=== PATIENT | female | born 1960 | race Two or more races ===

== ENCOUNTER 2018-07-01 13:26 | Emergency (ER) | payer SELFPAY ==
[2018-07-01 14:20] VITALS: BP 122/60; PULSE 68; TEMP 97.9; BMI 27.6
--- NOTE | 2018-07-01 14:20 | PDOC ---
Rapid Medical Evaluation Time Seen by Provider: 07/01/18 14:14 Medical Evaluation: 07/01/18 14:15 I have performed a brief in-person evaluation of this patient. The patient presents with a chief complaint of: BRIGGS, room spinning dizziness and nausea x2 days Pertinent physical exam findings: EOMI. CNII-XII grossly intact. Gait steady. OP -WNL. I have ordered the following: labs, urine The patient will proceed to the ED for further evaluation. Discharge Disposition - Diagnosis Dizziness - Referrals - Patient Instructions - Post Discharge Activity
[2018-07-01 14:46] LABS: BASO % 0.3 % (0-2.0); HEMATOCRIT 35.9 % (32.4-45.2); HEMOGLOBIN 12.6 GM/dL (10.7-15.3); LYMPH % 23.2 % (8-40); MCH 31.5 pg (25.7-33.7); MCHC 35.2 g/dl (32.0-36.0); MEAN CELL VOLUME 89.5 fl (80-96); MEAN PLT VOLUME 8.8 fl (7.5-11.1); MONO % 6.2 % (3.8-10.2); NEUT % 69.3 % (42.8-82.8); PLATELET COUNT 299 K/MM3 (134-434); RBC 4.01 M/mm3 (3.60-5.2); RDW 13.1 % (11.6-15.6)
[2018-07-01 15:06] LABS: URINE APPEARANCE CLEAR; URINE BILIRUBIN NEGATIVE (<2.0 mg/dL); URINE COLOR COLORLESS; URINE GLUCOSE (UA) NEGATIVE (NEGATIVE); URINE KETONE NEGATIVE (NEGATIVE); URINE LEUK ESTERASE NEGATIVE (NEGATIVE); URINE NITRITE NEGATIVE (NEGATIVE); URINE PROTEIN NEGATIVE (NEGATIVE); URINE UROBILINOGEN NEGATIVE mg/dL (0.2-1.0)
[2018-07-01 15:18] LABS: ALBUMIN 3.7 g/dl (3.4-5.0); ALK PHOS 116 U/L (45-117); ANION GAP 4 MMOL/L (8-16); BILIRUBIN,TOTAL 0.2 mg/dL (0.2-1); BLOOD UREA NITROGEN 14 mg/dL (7-18); CALCIUM 8.9 mg/dL (8.5-10.1); CHLORIDE 105 mmol/L (98-107); CO2 30 mmol/L (21-32); CREATININE 0.5 mg/dL (0.55-1.3); GLUCOSE,RANDOM 161 mg/dL (74-106); SGOT/AST 19 U/L (15-37); SGPT/ALT 38 U/L (13-61); SODIUM 138 mmol/L (136-145); TOT PROT 7.6 g/dl (6.4-8.2)
[2018-07-01] MEDS ORDERED: IBUPROFEN 400 MG TABLET (FP) PO ONE ×2 (15:28→15:55)
--- NOTE | 2018-07-01 15:28 | PDOC ---
History of Present Illness - General Chief Complaint: Cold Symptoms Stated Complaint: HEADACHE Time Seen by Provider: 07/01/18 14:14 Past History - Past Medical History Allergies/Adverse Reactions: Allergies Allergy/AdvReac Type Severity Reaction Status Date / Time No Known Allergies Allergy Verified 07/01/18 14:17 - Suicide/Smoking/Psychosocial Hx Smoking History: Never smoked Hx Alcohol Use: No Drug/Substance Use Hx: No *Physical Exam - Vital Signs Last Vital Signs Temp Pulse Resp BP Pulse Ox 97.9 F 68 18 122/60 99 07/01/18 14:17 07/01/18 14:17 07/01/18 14:17 07/01/18 14:17 07/01/18 14:17 Moderate Sedation - Procedure Monitoring Vital Signs: Procedure Monitoring Vital Signs Temperature 97.9 F 07/01/18 14:17 Pulse Rate 68 07/01/18 14:17 Respiratory Rate 18 07/01/18 14:17 Blood Pressure 122/60 07/01/18 14:17 O2 Sat by Pulse Oximetry (%) 99 07/01/18 14:17 ED Treatment Course - LABORATORY CBC & Chemistry Diagram: 07/01/18 14:34 07/01/18 14:35 - ADDITIONAL ORDERS Additional order review: Laboratory Results 07/01/18 07/01/18 14:43 14:35 Sodium 138 Potassium 4.0 Chloride 105 Carbon Dioxide 30 Anion Gap 4 L BUN 14 Creatinine 0.5 L Creat Clearance w eGFR > 60 Random Glucose 161 H Calcium 8.9 Total Bilirubin 0.2 AST 19 ALT 38 Alkaline Phosphatase 116 Creatine Kinase 85 Troponin I < 0.02 Total Protein 7.6 Albumin 3.7 Urine Color Colorless Urine Appearance Clear Urine pH 6.0 Ur Specific [place] 1.003 L Urine Protein Negative Urine Glucose (UA) Negative Urine Ketones Negative Urine Blood Negative Urine Nitrite Negative Urine Bilirubin Negative Urine Urobilinogen Negative Ur Leukocyte Esterase Negative 07/01/18 14:34 RBC 4.01 MCV 89.5 MCHC 35.2 RDW 13.1 MPV 8.8 Neutrophils % 69.3 Lymphocytes % 23.2 Monocytes % 6.2 Eosinophils % 1.0 Basophils % 0.3 Medical Decision Making - Medical Decision Making 07/01/18 15:26 58 yo F, denies any pmhx, p/w BRIGGS/ since saturday intemrittent dizizness, nv x 1, and any body aches, feverdizzines wors e. [place]ing at [place]. top constant /10, nausea, vomitin x 2w BRIGGS, fatigue 07/01/18 14:15 I have performed a brief in-person evaluation of this patient. The patient presents with a chief complaint of: BRIGGS, room spinning dizziness and nausea x2 days Pertinent physical exam findings: EOMI. CNII-XII grossly intact. Gait steady. OP -WNL. I have ordered the following: labs, urine The patient will proceed to the ED for further evaluation. Discharge Disposition *DC/Admit/Observation/Transfer Diagnosis at time of Disposition: Dizziness - Referrals - Patient Instructions - Post Discharge Activity
--- NOTE | 2018-07-01 15:34 | PDOC ---
History of Present Illness - General Chief Complaint: Cold Symptoms Stated Complaint: HEADACHE Time Seen by Provider: 07/01/18 14:14 History Source: Patient Past History - Past Medical History Allergies/Adverse Reactions: Allergies Allergy/AdvReac Type Severity Reaction Status Date / Time No Known Allergies Allergy Verified 07/01/18 14:17 - Suicide/Smoking/Psychosocial Hx Smoking History: Never smoked Hx Alcohol Use: No Drug/Substance Use Hx: No Review of Systems - Review of Systems Constitutional: No: Chills, Fever HEENTM: No: Blurred Vision ABD/GI: Yes: Nausea, Vomiting Neurological: Yes: Headache, Dizziness. No: Numbness, Tingling, Weakness *Physical Exam - Vital Signs Last Vital Signs Temp Pulse Resp BP Pulse Ox 97.9 F 68 18 122/60 99 07/01/18 14:17 07/01/18 14:17 07/01/18 14:17 07/01/18 14:17 07/01/18 14:17 - Physical Exam General Appearance: Yes: Appropriately Dressed. No: Apparent Distress HEENT: positive: Normal Voice Neck: positive: Supple Respiratory/Chest: positive: Lungs Clear, Normal Breath Sounds. negative: Respiratory Distress Cardiovascular: positive: Regular Rate, S1, S2 Extremity: positive: Normal Inspection Integumentary: positive: Dry, Warm Neurologic: positive: Fully Oriented, Alert, Normal Mood/Affect, Motor Strength 5/5, Finger to Nose, Other ([place] intact, no ataxia, no drift). negative: Facial Droop Moderate Sedation - Procedure Monitoring Vital Signs: Procedure Monitoring Vital Signs Temperature 97.9 F 07/01/18 14:17 Pulse Rate 68 07/01/18 14:17 Respiratory Rate 18 07/01/18 14:17 Blood Pressure 122/60 07/01/18 14:17 O2 Sat by Pulse Oximetry (%) 99 07/01/18 14:17 ED Treatment Course - LABORATORY CBC & Chemistry Diagram: 07/01/18 14:34 07/01/18 14:35 - ADDITIONAL ORDERS Additional order review: Laboratory Results 07/01/18 07/01/18 14:43 14:35 Sodium 138 Potassium 4.0 Chloride 105 Carbon Dioxide 30 Anion Gap 4 L BUN 14 Creatinine 0.5 L Creat Clearance w eGFR > 60 Random Glucose 161 H Calcium 8.9 Total Bilirubin 0.2 AST 19 ALT 38 Alkaline Phosphatase 116 Creatine Kinase 85 Troponin I < 0.02 Total Protein 7.6 Albumin 3.7 Urine Color Colorless Urine Appearance Clear Urine pH 6.0 Ur Specific [place] 1.003 L Urine Protein Negative Urine Glucose (UA) Negative Urine Ketones Negative Urine Blood Negative Urine Nitrite Negative Urine Bilirubin Negative Urine Urobilinogen Negative Ur Leukocyte Esterase Negative 07/01/18 14:34 RBC 4.01 MCV 89.5 MCHC 35.2 RDW 13.1 MPV 8.8 Neutrophils % 69.3 Lymphocytes % 23.2 Monocytes % 6.2 Eosinophils % 1.0 Basophils % 0.3 - RADIOLOGY Radiology Studies Ordered: Category Date Time Status HEAD CT WITHOUT CONTRAST [CT] Stat CT Scan 07/01/18 15:28 Ordered Medical Decision Making - Medical Decision Making 07/01/18 15:29 89-year-old female, denies any past medical history here with constant, diffuse headache for the past 3 days, diffuse, sharp, 8/10, w/ no exacerbating or alleviating factors. Also complaining of intermittent lightheadedness and had 1 e/o n/v 3 nights ago. No vertigo, syncope, visual changes, sensory changes or focal weakness. No neck pain, photophobia, uri sxs, f/c. Denies history of headaches. No chest pain or shortness of breath See exam New onset BRIGGS No focal sxs No e/o infxn Stable and well alissa w/ unremarkable exam -pain control -labs including ESR though very low suspicion for TA -CTH 07/01/18 17:16 Labs including ESR and CT head all normal. Patient reports improvement with Motrin. Stable for discharge to follow-up with neurology for further evaluation if headache persists 07/01/18 17:17 *DC/Admit/Observation/Transfer Diagnosis at time of Disposition: Headache Qualifiers: Headache type: unspecified Headache chronicity pattern: acute headache Intractability: intractable Qualified Code(s): R51 - Headache - Discharge Dispostion Disposition: HOME Condition at time of disposition: Improved - Referrals Referrals: Denny Schmidt MD [Staff Physician] - - Patient Instructions Printed Discharge Instructions: DI for Headache Additional Instructions: The cause of your headache is unclear at this time as your CAT scan and blood work were all normal. If headache persists, please call Dr. Schmidt of neurology for an appointment for further evaluation - Post Discharge Activity
[2018-07-01 16:43] LABS: ERYTHROCYTE SEDIMENTATION RATE 26 mm/hr (0-30)
--- NOTE | 2018-07-02 11:09 | EKG ---
Test Reason : Blood Pressure : / mmHG Vent. Rate : 064 BPM Atrial Rate : 064 BPM P-R Int : 152 ms QRS Dur : 076 ms QT Int : 392 ms P-R-T Axes : 063 068 078 degrees QTc Int : 404 ms SINUS RHYTHM WITH PREMATURE ATRIAL COMPLEXES NONSPECIFIC T WAVE ABNORMALITY ABNORMAL ECG NO PREVIOUS ECGS AVAILABLE Confirmed by JOSE CRUZ KIRBY MD ([id number]) on 07/02/2018 11:09:38 AM Referred By: Confirmed By:JOSE CRUZ KIRBY MD
== END 2018-07-01 17:17 | disposition home or self-care (01) ==
LOC: JER 13:26
DX: R51 Headache (principal)
CPT/HCPCS: 36415; 70450-TC; 80053; 81003; 82550; 84484; 85025; 85651; 87086; 93005; 93010; 99282-25

== ENCOUNTER 2019-11-16 17:31 | Emergency (ER) | payer SELFPAY ==
--- NOTE | 2019-11-16 17:38 | PDOC ---
Rapid Medical Evaluation Time Seen by Provider: 11/16/19 17:34 Medical Evaluation: Allergies Allergy/AdvReac Type Severity Reaction Status Date / Time No Known Allergies Allergy Verified 07/01/18 14:17 11/16/19 17:34 The patient presents to the ER with chest pain for 8 days. She states that a dresser was falling and she held the dresser. Then a cup fell off of the top of the dresser striking her in the chest. States that her L chest and L shoulder are tender. Exam: TTP of the L chest wall Orders: EKG, CXR/ribs series Pt to proceed to the ER for further evaluation Discharge Disposition - Diagnosis Chest pain Qualifiers: Chest pain type: unspecified Qualified Code(s): R07.9 - Chest pain, unspecified - Referrals - Patient Instructions - Post Discharge Activity
[2019-11-16 17:48] VITALS: BP 136/77; TEMP 98.6; BMI 27.3
[2019-11-16 18:40] LABS: BASO % 0.3 % (0-2.0); EOS % 0.8 % (0-4.5); HEMATOCRIT 36.4 % (32.4-45.2); HEMOGLOBIN 12.3 GM/dL (10.7-15.3); LYMPH % 20.8 % (8-40); MCHC 33.7 g/dl (32.0-36.0); MEAN CELL VOLUME 89.1 fl (80-96); MEAN PLT VOLUME 8.5 fl (7.5-11.1); MONO % 6.6 % (3.8-10.2); NEUT % 71.5 % (42.8-82.8); PLATELET COUNT 317 K/MM3 (134-434); RBC 4.09 M/mm3 (3.60-5.2); RDW 13.3 % (11.6-15.6); WHITE BLOOD COUNT 9.4 K/mm3 (4.0-10.0)
--- NOTE | 2019-11-16 19:05 | PDOC ---
History of Present Illness - General Chief Complaint: Pain Stated Complaint: R/UPPER CHEST DISCOMFORT Time Seen by Provider: 11/16/19 17:34 History Source: Patient Exam Limitations: No Limitations - History of Present Illness Initial Comments: 11/16/19 19:05 59-year-old female presents to ED status post injury to her left chest. Patient states was taking something of the shelf on it struck her in her left chest now stating discomfort with deep breathing and moving. Patient denies previous injury to affected area denies shortness of breath, or nausea since injury. Patient states is taken nothing for the pain and decided come to the ER for further evaluation. Patient currently on no anticoagulation therapy. Is this a multiple visit Asthma Patient?: No Timing/Duration: 24 hours Severity: mild Associated Symptoms: reports: chest pain Past History - Travel History Traveled outside of the country in the last 30 days: No Close contact w/someone who was outside of country & ill: No - Medical History Allergies/Adverse Reactions: Allergies Allergy/AdvReac Type Severity Reaction Status Date / Time No Known Allergies Allergy Verified 07/01/18 14:17 Home Medications: Ambulatory Orders NK [No Known Home Medication] 07/01/18 COPD: No - Psycho-Social/Smoking History Patient Lives Alone: No Lives with/in: spouse/SO Smoking History: Never smoked Information on smoking cessation initiated: No - Substance Abuse Hx (Audit-C & DAST Scrn) How often the patient has a drink containing alcohol: Never Score: In Men: 4 or > Positive; In Women: 3 or > Positive: 0 Screen Result (Pos requires Nsg. Audit-10AR): Negative In the last yr the pt used illegal drug/Rx for NonMed reason: No Score: Yes response is considered Positive: 0 Screen Result (Positive result requires Nsg. DAST-10): Negative Review of Systems - Review of Systems Able to Perform ROS?: No Is the patient limited Kyr[place]z proficient: No Cardiac (ROS): Yes: Chest Pain ABD/GI: No: Symptoms Reported Musculoskeletal: Yes: Muscle Pain (Left pectoral) Integumentary: No: Symptoms Reported Neurological: No: Symptoms reported Hematologic/Lymphatic: No: Symptoms Reported *Physical Exam - Vital Signs Last Vital Signs Temp Pulse Resp BP Pulse Ox 98.6 F 74 17 136/77 99 11/16/19 17:35 11/16/19 17:35 11/16/19 17:35 11/16/19 17:35 11/16/19 17:35 - Physical Exam General Appearance: Yes: Nourished, Appropriately Dressed. No: Apparent Distress HEENT: negative: Pale Conjunctivae Neck: positive: Supple Respiratory/Chest: positive: Chest Tender (Left 2nd-3rd intercostal space 3 fingerbreadths left lateral of sternum. No visible hematoma no palpable crepitus no deformity. Symmetric chest rise), Lungs Clear, Normal Breath Sounds. negative: Respiratory Distress, Accessory Muscle Use Cardiovascular: positive: Regular Rhythm, Regular Rate. negative: Murmur Gastrointestinal/Abdominal: positive: Soft. negative: Tenderness Extremity: positive: Normal Capillary Refill Integumentary: positive: Normal Color, Warm, Moist Neurologic: positive: Normal Mood/Affect, Motor Strength 5/5 (Ambulatory) ED Treatment Course - LABORATORY CBC & Chemistry Diagram: 11/16/19 18:25 11/16/19 18:25 - ADDITIONAL ORDERS Additional order review: 11/16/19 18:25 RBC 4.09 MCV 89.1 MCHC 33.7 RDW 13.3 MPV 8.5 Neutrophils % 71.5 Lymphocytes % 20.8 Monocytes % 6.6 Eosinophils % 0.8 Basophils % 0.3 Medical Decision Making - Medical Decision Making 11/16/19 19:07 Chief complaint: Left upper chest wall pain worsened with deep breathing and movement to being struck with an item off a shelf. Exam: Patient with reproducible left upper chest wall pain at the 2nd-3rd intercostal space lateral of the sternum no crepitus no deformity no visible injury. plan: EKG, rib and chest x-ray Laboratory Tests 11/16/19 18:25 WBC 9.4 Hgb 12.3 Hct 36.4 Absolute Neuts (auto) 6.7 Chemistry pending. Patient requesting Motrin 11/16/19 19:12 Laboratory Tests 11/16/19 18:25 Sodium 141 Potassium 4.7 Chloride 107 Carbon Dioxide 31 Anion Gap 4 L BUN 14.8 Creatinine 0.7 Est GFR (CKD-EPI)NonAf 94.17 Random Glucose 145 H Calcium 9.3 Total Bilirubin 0.3 AST 14 L ALT 29 Alkaline Phosphatase 118 H Troponin I < 0.02 Discharge Discharge - Discharge Information Problems reviewed: Yes Clinical Impression/Diagnosis: Chest wall contusion Condition: Improved Disposition: HOME - Follow up/Referral - Patient Discharge Instructions Patient Printed Discharge Instructions: DI for Rib Contusion Additional Instructions: Splint area when coughing or deep breathing. Take Motrin as needed for discomfort. Avoid movements that trigger discomfort. - Post Discharge Activity
[2019-11-16] MEDS ORDERED: IBUPROFEN 600 MG TABLET (FP) PO ONE ×2 (19:08→19:19)
[2019-11-16 19:11] LABS: ALBUMIN 3.8 g/dl (3.4-5.0); ALK PHOS 118 U/L (45-117); ANION GAP 4 MMOL/L (8-16); BILIRUBIN,TOTAL 0.3 mg/dL (0.2-1); BLOOD UREA NITROGEN 14.8 mg/dL (7-18); CALCIUM 9.3 mg/dL (8.5-10.1); CHLORIDE 107 mmol/L (98-107); CO2 31 mmol/L (21-32); CREATININE 0.7 mg/dL (0.55-1.3); GLUCOSE,RANDOM 145 mg/dL (74-106); POTASSIUM 4.7 mmol/L (3.5-5.1); SGOT/AST 14 U/L (15-37); SGPT/ALT 29 U/L (13-61); SODIUM 141 mmol/L (136-145); TOT PROT 7.9 g/dl (6.4-8.2)
[2019-11-16 19:37] VITALS: PULSE 85
--- NOTE | 2019-11-18 09:22 | EKG ---
Test Reason : Blood Pressure : / mmHG Vent. Rate : 069 BPM Atrial Rate : 069 BPM P-R Int : 144 ms QRS Dur : 080 ms QT Int : 380 ms P-R-T Axes : 055 063 060 degrees QTc Int : 407 ms NORMAL SINUS RHYTHM POSSIBLE LEFT ATRIAL ENLARGEMENT NONSPECIFIC T WAVE ABNORMALITY ABNORMAL ECG WHEN COMPARED WITH ECG OF 01-JUL-2018 14:33, PREMATURE ATRIAL COMPLEXES ARE NO LONGER PRESENT Confirmed by MD DERRICK, THAD ([id number]) on 11/18/2019 9:22:36 AM Referred By: Confirmed By:THAD MEZA MD
== END 2019-11-16 19:37 | disposition home or self-care (01) ==
LOC: JER 17:31
DX: S20.219A Contusion of unspecified front wall of thorax, initial encounter (principal)
CPT/HCPCS: 36415; 71046-TC-FY; 71101-TC-LT-FY; 80053; 82550; 84484; 85025; 93005; 93010; 99284-25